=== PATIENT | female | born 1940 | race Caucasian/White ===

== ENCOUNTER 2017-10-11 10:19 | Day surgery (SDC) | payer MEDICARE, OTHER ==
[~2017-10-11] VITALS: Ht 154.9 cm; Wt 63.7 kg
[~2017-10-11 10:19] MED LIST: BENTYL10 MG; CARV3.125; GABA100; HYOS.125; LEVSOD50; Omeprazole20 M1; PRED5
[2017-10-11] MEDS ORDERED: AMIT10 (11:37)
== END 2017-10-11 12:08 | disposition home or self-care (01) ==
LOC: ORSCSDS 10:19
PROVIDERS: Anesthesiology
PROC: 3E0R33Z Introduction of Anti-inflammatory into Spinal Canal, Percutaneous Approach (ICD-10-PCS; principal; 2017-10-11 11:30)
DX: M51.16 Intervertebral disc disorders with radiculopathy, lumbar region (principal); D53.1 Other megaloblastic anemias, not elsewhere classified; E03.9 Hypothyroidism, unspecified; I10 Essential (primary) hypertension; Z79.899 Other long term (current) drug therapy
CPT/HCPCS: J1040

== ENCOUNTER → 2019-05-25 | Outpatient (CLI) | payer MEDICARE, OTHER ==
[~2019-05-25] MED LIST changes: +AMIT10
== END | disposition home or self-care (01) ==
LOC: LAB SHORT 09:55 → LAB EV 09:55
DX: R35.0 Frequency of micturition (principal)
CPT/HCPCS: 87086

== ENCOUNTER → 2022-02-16 | Outpatient (CLI) | payer MEDICARE, OTHER ==
[2022-02-16 15:49] LABS: BASOPHILS ABSOLUTE AUTO 0.04 K/mm3 (0.00-0.23); BASOPHILS PERCENT AUTO 1 % (0-2); EOSINOPHILS ABSOLUTE AUTO 0.07 K/mm3 (0.00-0.68); EOSINOPHILS PERCENT AUTO 1 % (0-6); Hematocrit 34.9 % (33.0-51.0); Hemoglobin 11.1 g/dL (11.5-16.0); IMMATURE GRAN ABSOLUTE AUTO 0.01 K/mm3 (0.00-0.10); IMMATURE GRAN PERCENT AUTO 0 % (0-1); LYMPHOCYTES ABSOLUTE AUTO 1.27 K/mm3 (0.84-5.20); LYMPHOCYTES PERCENT AUTO 21 % (21-46); MONOCYTES ABSOLUTE AUTO 0.44 K/mm3 (0.16-1.47); MONOCYTES PERCENT AUTO 7 % (4-13); Mean Corpuscular HGB 27.8 pg (26.0-34.0); Mean Corpuscular HGB Conc 31.8 g/dL (31.5-36.5); Mean Corpuscular Volume 88 fL (80-100); Mean Platelet Volume 9.5 fL (9.1-12.4); NEUTROPHILS ABSOLUTE AUTO 4.32 K/mm3 (1.96-9.15); NEUTROPHILS PERCENT AUTO 70 % (41-73); Platelet Count 263 K/mm3 (150-400); RDW Coefficient Variation 13.9 % (11.7-14.2); RDW Standard Deviation 44.2 fL (35.1-46.3); Red Blood Cell Count 3.99 M/mm3 (3.80-5.20); White Blood Cell Count 6.15 K/mm3 (4.00-11.30)
[2022-02-16 16:08] LABS: Albumin, Blood 3.6 g/dL (3.4-5.0); Bilirubin, Total 0.2 mg/dL (0.1-1.0); Bun/Creatinine Ratio 27.8 (12.0-20.0); Creatinine, Blood 0.72 mg/dL (0.40-1.00); Globulin, Blood 3.6 g/dL (2.2-4.0); Thyroid Stimulating Hormone 0.879 uIU/mL (0.360-4.800); Total Protein, Blood 7.2 g/dL (6.4-8.2)
== END | disposition home or self-care (01) ==
LOC: LAB 15:40 → LAB SHORT 15:40
PROVIDERS: Physician Assistant
DX: R00.2 Palpitations (principal); R53.83 Other fatigue
CPT/HCPCS: 80053; 84443; 84484; 85025

== ENCOUNTER → 2022-08-04 | Outpatient (CLI) | payer MEDICARE, OTHER ==
[2022-08-04 14:54] LABS: BASOPHILS ABSOLUTE AUTO 0.02 K/mm3 (0.00-0.23); BASOPHILS PERCENT AUTO 0 % (0-2); EOSINOPHILS ABSOLUTE AUTO 0.01 K/mm3 (0.00-0.68); EOSINOPHILS PERCENT AUTO 0 % (0-6); Hematocrit 36.1 % (33.0-51.0); Hemoglobin 11.4 g/dL (11.5-16.0); IMMATURE GRAN ABSOLUTE AUTO 0.05 K/mm3 (0.00-0.10); IMMATURE GRAN PERCENT AUTO 0 % (0-1); LYMPHOCYTES ABSOLUTE AUTO 0.82 K/mm3 (0.84-5.20); LYMPHOCYTES PERCENT AUTO 7 % (21-46); MONOCYTES ABSOLUTE AUTO 0.26 K/mm3 (0.16-1.47); MONOCYTES PERCENT AUTO 2 % (4-13); Mean Corpuscular HGB 26.2 pg (26.0-34.0); Mean Corpuscular HGB Conc 31.6 g/dL (31.5-36.5); Mean Corpuscular Volume 83 fL (80-100); Mean Platelet Volume 9.4 fL (9.1-12.4); NEUTROPHILS ABSOLUTE AUTO 11.18 K/mm3 (1.96-9.15); NEUTROPHILS PERCENT AUTO 91 % (41-73); Platelet Count 289 K/mm3 (150-400); RDW Coefficient Variation 16.2 % (11.7-14.2); RDW Standard Deviation 48.6 fL (35.1-46.3); Red Blood Cell Count 4.35 M/mm3 (3.80-5.20); White Blood Cell Count 12.34 K/mm3 (4.00-11.30)
[2022-08-04 15:11] LABS: Albumin, Blood 3.4 g/dL (3.4-5.0); Albumin/Globulin Ratio 0.8 (0.8-1.8); Bilirubin, Total 0.1 mg/dL (0.1-1.0); Bun/Creatinine Ratio 27.3 (12.0-20.0); Creatinine, Blood 0.88 mg/dL (0.40-1.00); Globulin, Blood 4.2 g/dL (2.2-4.0); Potassium, Blood 3.9 mmol/L (3.5-5.5); Thyroid Stimulating Hormone 0.509 uIU/mL (0.360-4.800); Total Protein, Blood 7.6 g/dL (6.4-8.2)
== END | disposition home or self-care (01) ==
LOC: LAB SHORT 14:49
PROVIDERS: Physician Assistant Surgical
DX: R53.83 Other fatigue (principal); R42 Dizziness and giddiness; M35.3 Polymyalgia rheumatica
CPT/HCPCS: 80053; 84443; 85025; 85651; 86140

== ENCOUNTER 2022-10-20 11:27 | Observation (INO) | payer MEDICARE, OTHER ==
[~2022-10-20] VITALS: Ht 154.9 cm; Wt 68.8 kg
[~2022-10-20 11:27] MED LIST changes: -BENTYL10 MG; +Bentyl10 MG/ML PO; -GABA100; +GABA100 PO
[2022-10-20 12:18] LABS: BASOPHILS ABSOLUTE AUTO 0.03 K/mm3 (0.00-0.23); BASOPHILS PERCENT AUTO 0 % (0-2); EOSINOPHILS ABSOLUTE AUTO 0.02 K/mm3 (0.00-0.68); EOSINOPHILS PERCENT AUTO 0 % (0-6); Hematocrit 35.7 % (33.0-51.0); Hemoglobin 11.3 g/dL (11.5-16.0); IMMATURE GRAN ABSOLUTE AUTO 0.03 K/mm3 (0.00-0.10); IMMATURE GRAN PERCENT AUTO 0 % (0-1); LYMPHOCYTES ABSOLUTE AUTO 1.04 K/mm3 (0.84-5.20); LYMPHOCYTES PERCENT AUTO 11 % (21-46); MONOCYTES ABSOLUTE AUTO 0.56 K/mm3 (0.16-1.47); MONOCYTES PERCENT AUTO 6 % (4-13); Mean Corpuscular HGB 27.6 pg (26.0-34.0); Mean Corpuscular HGB Conc 31.7 g/dL (31.5-36.5); Mean Corpuscular Volume 87 fL (80-100); Mean Platelet Volume 9.1 fL (9.1-12.4); NEUTROPHILS ABSOLUTE AUTO 7.87 K/mm3 (1.96-9.15); NEUTROPHILS PERCENT AUTO 82 % (41-73); Platelet Count 312 K/mm3 (150-400); RDW Coefficient Variation 16.9 % (11.7-14.2); RDW Standard Deviation 53.4 fL (35.1-46.3); White Blood Cell Count 9.55 K/mm3 (4.00-11.30)
[2022-10-20 12:48] LABS: Albumin, Blood 3.2 g/dL (3.4-5.0); Albumin/Globulin Ratio 0.8 (0.8-1.8); Bilirubin, Total 0.3 mg/dL (0.1-1.0); Bun/Creatinine Ratio 36.7 (12.0-20.0); Creatinine, Blood 0.76 mg/dL (0.40-1.00); Potassium, Blood 3.8 mmol/L (3.5-5.5); Total Protein, Blood 7.2 g/dL (6.4-8.2)
[2022-10-20] MEDS ORDERED: LOSA50 PO (15:28)
[2022-10-20] MEDS ORDERED: SIME80CH PO (15:30)
[2022-10-21] MEDS ORDERED: MULVITA PO (01:41)
[2022-10-21] MEDS ORDERED: VITAMIN D310 MC4 (01:50)
[2022-10-21] MEDS ORDERED: LACTASE FAS9000 UNI1 PO (01:52)
[2022-10-21 04:22] LABS: Albumin, Blood 2.8 g/dL (3.4-5.0); Albumin/Globulin Ratio 0.8 (0.8-1.8); Bilirubin, Total 0.3 mg/dL (0.1-1.0); Bun/Creatinine Ratio 37.9 (12.0-20.0); Calcium, Blood 8.6 mg/dL (8.5-10.1); Creatinine, Blood 0.71 mg/dL (0.40-1.00); Globulin, Blood 3.5 g/dL (2.2-4.0); Magnesium, Blood 2.1 mg/dL (1.6-2.4); Phosphorus, Blood 3.3 mg/dL (2.5-4.9); Potassium, Blood 3.8 mmol/L (3.5-5.5); Thyroid Stimulating Hormone 0.63 uIU/mL (0.360-4.800); Total Protein, Blood 6.3 g/dL (6.4-8.2)
--- NOTE | 2022-10-21 06:14 | NUR ---
SHIFT SUMMARY PT IS A VERY PLEASENT 81YR OLD FEMALE WHO IS A&OX4, IND IN THE ROOM, AND CALLS APPRORPRIATELY. PT CAME TO PCU 06 AT SHIFT CHANGE AND SHE WAS AFIB 130'S-140'S. SHE WAS PLACED ONE A DILT GTT AND CONVERTED TO SR AT 2117. SHE STATES SHE FEELS "COMPLETELY NORMAL". THE PT'S BP GOT SOFT BUT REMAINED STABLE IN THE SHIFT. SHE HAS DENIED ANY ANGINA OR CHEST PRESSURE SINCE CONVERTING. THE PT IS VERY COOPERATIVE WITH CARE AND IS READY TO GO HOME. BED IS IN LOW, CALL LIGHT IN REACH, AND I WILL CONTINUE TO MONITOR UNTIL SHIFT REPORT IS GIVEN TO THE ONCOMING SHIFT RN. SEE NOTES FOR ANY UPDATES.
--- NOTE | 2022-10-21 13:07 | NUR ---
Upon receiving a referral for spiritual care, I visited patient. Patient explains about her medical issues and the plan moving forward. She then talks about the of her spouse several years ago. They were for 62 years and even though she takes comfort from the fact that he is no longer suffering from the effects of the Parkinson's disease that he had, she is still doing the hard work of bereavement. She also talks about her move from the [facility] out to [place] [address] [facility]. She shares about the challenges of this because of the isolation from all the support and routines of her prior life. She talks at length about the Hoahaoism kerry that she has and how she is encouraged by any discussion revolving around the goodness of God. We also explore her medical wishes to be DNR and that she is ready to go when the time comes and she does not want that delayed by aggressive medical treatment. I normalize her experience, reinforce her positive and joyful outlook and provide therapeutic listening and prayer. Patient responds well and shows signs of being encouraged in her Hoahaoism kerry. Patient then blesses me for my work at the hospital. I will continue to remain available.
[2022-10-21] MEDS ORDERED: DILT120 PO (15:08)
[2022-10-21] MEDS ORDERED: LEVSOD75 PO (15:09)
--- NOTE | 2022-10-21 16:02 | NUR ---
Discharge home. Pt A&Ox4. VSS at time of discharge. Pt educated on new medication. Zio patch was placed. IV removed. All belongings were taken with Pt. All questions were answered. Son to give Pt a ride home. Pt escorted to door.
== END 2022-10-21 15:56 | disposition home or self-care (01) ==
LOC: ER 11:27 → MEDS 11:28 → PCU 19:05
PROVIDERS: Emergency Medicine; ADMIT Family Medicine
DX: R07.89 Other chest pain (principal); I10 Essential (primary) hypertension; E03.9 Hypothyroidism, unspecified; Z88.2 Allergy status to sulfonamides; Z88.5 Allergy status to narcotic agent; I48.0 Paroxysmal atrial fibrillation; K21.9 Gastro-esophageal reflux disease without esophagitis; G60.9 Hereditary and idiopathic neuropathy, unspecified; I35.8 Other nonrheumatic aortic valve disorders
CPT/HCPCS: 36415; 71045; 80053; 83735; 83880; 84100; 84443; 84484; 85025; 85379; 93005; 93010; 93242; 93306; 96372; 96374; 96375; 96376; 99285-25; A9270; G0378; J1650